=== PATIENT | male | born 1990 | race African-American/Black ===

== ENCOUNTER 2016-06-24 20:09 | Emergency (ER) | payer SELFPAY ==
--- NOTE | 2016-06-24 21:16 | ER Document Report ---
ED Medical Screen (RME) - General Chief Complaint: ear cyst L ear Stated Complaint: EAR PAIN Mode of Arrival: Ambulatory Information source: Patient Notes: 25 y/o M presents to ED c/o cyst to left ear. Reports similar symptoms in the past. Denies fever. I have greeted and performed a rapid initial assessment of this patient. A comprehensive ED assessment and evaluation of the patient, analysis of test results and completion of the medical decision making process will be conducted by additional ED providers. TRAVEL OUTSIDE OF THE [place] IN LAST 30 DAYS: No - Related Data Allergies/Adverse Reactions: No Known Allergies Allergy (Unverified 01/18/12 17:52) Past Medical History Renal/ Medical History: Denies: Hx Peritoneal Dialysis - Immunizations Hx Diphtheria, Pertussis, Tetanus Vaccination: Yes Physical Exam - Vital signs Vitals: Temp Pulse Resp BP Pulse Ox 97.7 F 65 16 130/80 H 99 06/24/16 20:20 06/24/16 20:20 06/24/16 20:20 06/24/16 20:20 06/24/16 20:20 - General General appearance: Appears well, Alert Course - Vital Signs Vital signs: Temp Pulse Resp BP Pulse Ox 97.7 F 65 16 130/80 H 99 06/24/16 20:20 06/24/16 20:20 06/24/16 20:20 06/24/16 20:20 06/24/16 20:20
[2016-06-24] MEDS ORDERED: CIPROFLOXACIN-HC OTIC SUSP 10 ML AS ONE (22:51)
[2016-06-24] MEDS ORDERED: CLINDAMYCIN HCL 150 MG CAPSULE PO ONE (22:52)
--- NOTE | 2016-06-24 22:56 | ER Document Report ---
ED General - General Chief Complaint: Cyst Stated Complaint: EAR PAIN Mode of Arrival: Ambulatory Notes: Patient is 25-year-old male presents with complaint of a bump on the helix of his left ear. The remainder of the ear is not swollen. No recent fevers or infections. He's never had a piercing in this area of his ear. No other complaints at this time. TRAVEL OUTSIDE OF THE [place] IN LAST 30 DAYS: No - Related Data Allergies/Adverse Reactions: No Known Allergies Allergy (Unverified 01/18/12 17:52) Past Medical History - General Information source: Patient - Social History Smoking Status: Unknown if Ever Smoked Frequency of alcohol use: None Drug Abuse: None Family History: Reviewed & Not Pertinent Patient has suicidal ideation: No Patient has homicidal ideation: No Renal/ Medical History: Denies: Hx Peritoneal Dialysis - Immunizations Hx Diphtheria, Pertussis, Tetanus Vaccination: Yes Review of Systems - Review of Systems Notes: My Normal Review Basic REVIEW OF SYSTEMS: CONSTITUTIONAL : Denies fever, chills, or sweats. Denies recent illness. EENT: Small abscess on helix left ear. NEUROLOGICAL: Denies altered mental status or loss of consciousness. Denies headache. Denies weakness or paralysis or loss of use of either side. Denies problems with gait or speech. Denies sensory or motor loss. ALL OTHER SYSTEMS REVIEWED AND NEGATIVE. Physical Exam - Vital signs Vitals: Temp Pulse Resp BP Pulse Ox 97.7 F 65 16 130/80 H 99 06/24/16 20:20 06/24/16 20:20 06/24/16 20:20 06/24/16 20:20 06/24/16 20:20 - Notes Notes: General Appearance: Well nourished, alert, cooperative, no acute distress, no obvious discomfort. Vitals: reviewed, See vital signs table. Head: no swelling or tenderness to the head Eyes: PERRL, EOMI, Conjuctiva clear Mouth: No decreasd moisture Ears: Patient's has a small, less than 1 cm, pustule over the helix of left ear. No surrounding erythema. Neck: Supple, no neck tenderness, No thyromegaly Lungs: No wheezing, No rales, No rhonci, No accessory muscle use, good air exchange bilaterally. Heart: Normal rate, Regular rythm, No murmur, no rub Skin: warm, dry, appropriate color, no rash Neuro: speech clear, oriented x 3, normal affect, responds appropriately to questions. Course - Vital Signs Vital signs: Temp Pulse Resp BP Pulse Ox 97.6 F 66 18 133/78 H 96 06/25/16 00:04 06/25/16 00:04 06/25/16 00:04 06/25/16 00:04 06/25/16 00:04 - Transfer of Care Notes: 06/25/16 07:02 Patient's had small pustule on the left ear. I did unroof this with a 18-gauge needle. I was able to express pus from it. We'll place patient on antibiotics. I encouraged him to return to ER immediately if has any spotting redness or swelling in the ear. Encourage him follow-up with his primary care doctor as needed. Patient agrees with plan will be discharged home. Procedures - Incision and Drainage left ear Type: Simple Incision Method: Incision made with needle Amount/type of drainage: half an mL of pus Notes: 06/25/16 07:03 No complications Discharge - Discharge Clinical Impression: Abscess Condition: Good Disposition: HOME, SELF-CARE Additional Instructions: Please use the cipro otic eardrops as 1 drop every 12 hours for 7 days. Please take the clindamycin as prescribed. Please return to the ER immediately if you develop spreading redness of the ear, fevers, or feel unwell. Prescriptions: Clindamycin HCl 300 mg PO ASDIR #56 capsule
[2016-06-24] MEDS ORDERED: CIPROFLOXACIN-HC OTIC SUSP 10 ML ONE (23:35)
[2016-06-25 00:05] VITALS: BP 133/78
== END 2016-06-25 00:06 | disposition home or self-care (01) ==
LOC: ER 20:09
PROC: 0H93XZZ Drainage of Left Ear Skin, External Approach (ICD-10-PCS; principal; 2016-06-24)
DX: H60.02 Abscess of left external ear (principal)
CPT/HCPCS: 99283; 69000; J3490

== ENCOUNTER 2016-12-07 09:01 | Emergency (ER) | payer SELFPAY ==
[2016-12-07 09:09] VITALS: BP 130/74
--- NOTE | 2016-12-07 09:52 | ER Document Report ---
HPI - HPI Patient complains to provider of: rash Onset: Other - hand and left thigh with bumps, redness that started yesterday, girl friend recently treated for MRSA. denies allergies, admits to new body wash Onset/Duration: Gradual - started on his thigh Pain Level: 1 Exacerbated by: Denies Relieved by: Denies - DERM Skin Color: Normal Past Medical History - Social History Smoking Status: Current Every Day Smoker Family History: Reviewed & Not Pertinent Patient has suicidal ideation: No Patient has homicidal ideation: No Renal/ Medical History: Denies: Hx Peritoneal Dialysis - Immunizations Hx Diphtheria, Pertussis, Tetanus Vaccination: Yes Vertical Provider Document - CONSTITUTIONAL Agree With Documented VS: Yes Exam Limitations: No Limitations General Appearance: WD/WN, No Apparent Distress - INFECTION CONTROL TRAVEL OUTSIDE OF THE [place] IN LAST 30 DAYS: No - RESPIRATORY O2 Sat by Pulse Oximetry: 98 - CARDIOVASCULAR Pulses: Normal: Radial, Dorsalis pedis - MUSCULOSKELETAL/EXTREMETIES Musculoskeletal/Extremeties: MAEW, FROM, Non-Tender, No Edema - NEURO Level of Consciousness: Awake, Alert, Appropriate Motor/Sensory: No Motor Deficit, No Sensory Deficit - DERM Integumentary: Warm, Dry, Rash - right hand with area of erythema and central pustule. right thigh with 3 areas of erythema, warmth and tenderness Course - Re-evaluation Re-evalutation: 12/07/16 11:10 Patient is a 26 year old male who is clinically well, VSS. resting comfortably. H&P consistent with MRSA cellulitis. will treat with PO abx and to f/u with primary care - Vital Signs Vital signs: Temp Pulse Resp BP Pulse Ox 98.3 F 67 16 130/74 H 98 12/07/16 09:08 12/07/16 09:08 12/07/16 09:08 12/07/16 09:08 12/07/16 09:08 Discharge - Discharge Clinical Impression: Rash Condition: Good Disposition: HOME, SELF-CARE Instructions: MRSA Cellulitis ([facility]), Antihistamines ([facility]) Prescriptions: Cephalexin Monohydrate [Keflex 500 mg Capsule] 500 mg PO QID 5 Days Sulfamethoxazole/Trimethoprim [Bactrim Ds Tablet] 1 each PO BID #10 tablet Forms: Return to Work Referrals: GENE CARRILLO MD [NO LOCAL MD] - Follow up in 1 week
[2016-12-07] MEDS ORDERED: CEPHALEXIN 500 MG CAPSULE PO ONE (09:53)
[2016-12-07] MEDS ORDERED: SULFAMETHOXAZOLE/TRIMETHOPRIM 800-160 MG TABLET PO ONE (09:53)
== END 2016-12-07 10:05 | disposition home or self-care (01) ==
LOC: ER 09:01
DX: R21 Rash and other nonspecific skin eruption (principal); F17.200 Nicotine dependence, unspecified, uncomplicated
CPT/HCPCS: 99283

== ENCOUNTER 2018-09-18 14:26 | Emergency (ER) | payer SELFPAY ==
[2018-09-18 14:49] VITALS: BP 130/64
--- NOTE | 2018-09-18 15:50 | ER Document Report ---
HPI - HPI Time Seen by Provider: 09/18/18 14:57 Pain Level: 2 Context: Patient is a 28-year-old male who presents emerged department with a chief complaint of bilateral ear discomfort. He states that he has had a little bit of hearing difficulty. He was not sure if his allergies were causing his ear pain. He denies any fever, dizziness, vertigo, or any other symptoms. He states that he has not seen a doctor in the past few years. - CONSTITUTIONAL Constitutional: DENIES: Fever, Chills - EENT EENT: REPORTS: Ear Pain - bilateral x 2 d. DENIES: Sore Throat, Eye problems - NEURO Neurology: DENIES: Headache, Weakness, Vision blurred, Dizzinesss / Vertigo - CARDIOVASCULAR Cardiovascular: DENIES: Chest pain - RESPIRATORY Respiratory: DENIES: Trouble Breathing, Coughing - GASTROINTESTINAL Gastrointestinal: DENIES: Abdominal Pain, Black / Bloody Stools - URINARY Urinary: DENIES: Dysuria, Urgency, Frequency - MUSCULOSKELETAL Musculoskeletal: DENIES: Extremity pain Past Medical History - Social History Smoking Status: Current Every Day Smoker Family History: Reviewed & Not Pertinent Patient has suicidal ideation: No Patient has homicidal ideation: No Renal/ Medical History: Denies: Hx Peritoneal Dialysis - Immunizations Hx Diphtheria, Pertussis, Tetanus Vaccination: Yes Vertical Provider Document - CONSTITUTIONAL Agree With Documented VS: Yes Exam Limitations: No Limitations General Appearance: No Apparent Distress - INFECTION CONTROL TRAVEL OUTSIDE OF THE [place] IN LAST 30 DAYS: No - HEENT HEENT: Atraumatic, Normocephalic. negative: Conjuctival Injection Notes: Cerumen impaction noted to both ears. - NECK Neck: Normal Inspection - RESPIRATORY Respiratory: Breath Sounds Normal, No Respiratory Distress - CARDIOVASCULAR Cardiovascular: Regular Rate, Regular Rhythm Pulses: Normal: Radial - MUSCULOSKELETAL/EXTREMETIES Musculoskeletal/Extremeties: FROM, Non-Tender - NEURO Level of Consciousness: Awake, Alert, Appropriate Motor/Sensory: No Motor Deficit, No Sensory Deficit - DERM Integumentary: Warm, Dry Course - Re-evaluation Re-evalutation: 09/18/18 15:50 Patient has a cerumen impaction to both ears. Hydrogen peroxide will be placed to his ears to help with his cerumen impaction. His ears were also be irrigated here in the emergency department. 09/18/18 14:15 Patient's left ear was able to be disimpacted, but the right ear was not able to be fully disimpacted. There is no erythema noted to his left tympanic membrane. No otitis media or externa noted. I have given him a prescription for Debrox to use at home. Not suspect mastoiditis, as he does not have pain at the mastoid process. Verbal discharge instructions were given to the patient. They verbalized understanding. They are stable for discharge. - Vital Signs Vital signs: Temp Pulse Resp BP Pulse Ox 98.0 F 59 L 16 130/64 H 96 09/18/18 14:46 09/18/18 14:46 09/18/18 14:46 09/18/18 14:46 09/18/18 14:46 Discharge - Discharge Clinical Impression: Impacted cerumen of both ears Condition: Stable Disposition: HOME, SELF-CARE Additional Instructions: You were seen today in the emergency department for ear discomfort in both ears. You have an earwax impaction in both sides. You have been prescribed Debrox. Use as directed. Please follow-up with the primary care provider in regards to this issue. If you have worsening symptoms, or have any symptoms that are worr isome to you, please return to the emergency department. Prescriptions: Carbamide Peroxide [Debrox 6.5 % Otic Drops 15 ml] 10 drop OT PRN PRN #1 bottle PRN Reason: See Label Comments
== END 2018-09-18 16:45 | disposition home or self-care (01) ==
LOC: ER 14:26
PROC: 3E1B78Z Irrigation of Ear using Irrigating Substance, Via Natural or Artificial Opening (ICD-10-PCS; principal; 2018-09-18)
PROC: 3E1B78Z Irrigation of Ear using Irrigating Substance, Via Natural or Artificial Opening (ICD-10-PCS; 2018-09-18)
DX: H61.23 Impacted cerumen, bilateral (principal); H92.03 Otalgia, bilateral; F17.200 Nicotine dependence, unspecified, uncomplicated
CPT/HCPCS: 99282

== ENCOUNTER 2018-12-09 20:50 | Emergency (ER) | payer SELFPAY ==
[2018-12-09 21:01] VITALS: BP 135/84
== END 2018-12-10 02:00 | disposition left against medical advice (07) ==
LOC: ER 20:50
DX: Z53.21 Procedure and treatment not carried out due to patient leaving prior to being seen by health care provider (principal)

== ENCOUNTER 2018-12-11 20:06 | Emergency (ER) | payer OTHER ==
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
[2018-12-11 22:13] VITALS: BP 149/85
== END 2018-12-11 22:18 | disposition home or self-care (01) ==
LOC: ER 20:06
DX: M54.5 Low back pain (principal); M54.9 Dorsalgia, unspecified; V87.7XXA Person injured in collision between other specified motor vehicles (traffic), initial encounter
CPT/HCPCS: 99283